=== PATIENT | female | born 1980 | race Caucasian/White ===

== ENCOUNTER → 2019-05-19 14:03 | Outpatient (CLI) | payer OTHER | END | disposition home or self-care (01) | LOC: RAD 14:03 | DX: N20.0 Calculus of kidney (principal) ==

== ENCOUNTER 2020-02-11 14:50 | Emergency (ER) | payer OTHER ==
[~2020-02-11] VITALS: Ht 152.4 cm; Wt 77.1 kg
[2020-02-11] MEDS ORDERED: MULTI VITAMIN1 EACH (15:30)
[2020-02-11] MEDS ORDERED: TOPROL XL50 M1 (15:30)
[2020-02-11] MEDS ORDERED: XANAX XR2 MG (15:31)
== END 2020-02-11 17:28 | disposition home or self-care (01) ==
LOC: ER 14:50
DX: R51 Headache (principal); F41.0 Panic disorder [episodic paroxysmal anxiety]; F41.8 Other specified anxiety disorders

== ENCOUNTER 2021-02-07 14:59 | Outpatient (CLI) | payer OTHER ==
[~2021-02-07 14:59] MED LIST: MULTI VITAMIN1 EACH; TOPROL XL50 M1; XANAX XR2 MG
== END 2021-02-07 15:07 | disposition home or self-care (01) ==
LOC: MAMO-SONO 14:59
PROVIDERS: ATTEND Obstetrics & Gynecology
DX: Z12.31 Encounter for screening mammogram for malignant neoplasm of breast (principal); N64.59 Other signs and symptoms in breast; N60.11 Diffuse cystic mastopathy of right breast; N60.12 Diffuse cystic mastopathy of left breast

== ENCOUNTER → 2021-02-09 15:00 | Outpatient (CLI) | payer OTHER | END | disposition home or self-care (01) | LOC: PPH VACUNA 15:00 | DX: Z23 Encounter for immunization (principal) ==

== ENCOUNTER 2021-09-15 13:42 | Outpatient (CLI) | payer OTHER | END 2021-09-15 13:52 | disposition home or self-care (01) | LOC: RAD 13:42 | PROVIDERS: ATTEND Urology | DX: N20.0 Calculus of kidney (principal) ==

== ENCOUNTER 2021-09-16 15:46 | Emergency (ER) | payer OTHER ==
[~2021-09-16] VITALS: Ht 152.4 cm; Wt 70.3 kg
== END 2021-09-16 19:59 | disposition home or self-care (01) ==
LOC: ER 15:46
DX: N20.0 Calculus of kidney (principal); N39.0 Urinary tract infection, site not specified

== ENCOUNTER 2021-10-03 09:25 | Outpatient (CLI) | payer OTHER | END 2021-10-03 09:33 | disposition home or self-care (01) | LOC: RAD 09:25 | PROVIDERS: ATTEND Urology | DX: N20.0 Calculus of kidney (principal) ==

== ENCOUNTER 2022-12-06 09:20 | Emergency (ER) | payer OTHER ==
[~2022-12-06] VITALS: Ht 152.4 cm; Wt 72.6 kg
[2022-12-06] MEDS ORDERED: MUPIROCIN15 GM TOP (16:11)
== END 2022-12-06 16:44 ==
LOC: ER 09:20
DX: L02.211 Cutaneous abscess of abdominal wall (principal); N39.0 Urinary tract infection, site not specified; N26.1 Atrophy of kidney (terminal); N20.0 Calculus of kidney

== ENCOUNTER 2024-09-05 07:38 | Outpatient (CLI) | payer OTHER ==
[~2024-09-05 07:38] MED LIST changes: +MUPIROCIN15 GM TOP
== END 2024-09-05 07:44 | disposition home or self-care (01) ==
LOC: SONOGRAMA 07:38
DX: Z12.39 Encounter for other screening for malignant neoplasm of breast (principal)

== ENCOUNTER → 2024-09-09 07:44 | Outpatient (CLI) | payer OTHER ==
[2024-09-09 08:20] LABS: HEMATOCRIT 36.7 % (36.0-45.00); MEAN CELL VOLUME 90.8 fL (80.00-100.00); MEAN CORPUSCULAR HEMOGLOBIN 29.6 pg (27.00-32.0); MEAN CORPUSCULAR HGB CONC 32.6 g/dl (32.0-36.0); PLATELET COUNT 338 K/uL (150-450); RED BLOOD COUNT 4.04 M/uL (4.00-6.00); RED CELL DISTRIBUTION WIDTH 15.2 % (11.5-14.5)
[2024-09-09 08:31] LABS: PH,URINE 5.5 (5.0-8.0); URINE APPEARANCE Cloudy; URINE BILIRRUBIN Negative (NEGATIVE); URINE BLOOD Small; URINE COLOR Yellow; URINE GLUCOSE Negative (NEGATIVE); URINE KETONE Negative (NEGATIVE); URINE LEUKOCYTE Moderate; URINE NITRATE Negative; URINE PROTEIN Negative (NEGATIVE); URINE UROBILINOGEN 0.2 E.U./dl
[2024-09-09 08:35] LABS: URINE BACTERIA 2824.5 uL (0.0-1933); URINE WBC 263.5 uL (0.0-23.2)
[2024-09-09 09:13] LABS: URINE RBC 1.5 uL (0.0-20.8)
[2024-09-09 09:16] LABS: ALBUMIN 3.3 gm/dL (3.4-5.0); BILIRUBIN TOTAL 0.56 mg/dL (0.3-1.2); CALCIUM 9.6 mg/dL (8.5-10.1); CHOL HDL RATIO 1.7 (0-5.0); CREATININE SERUM 0.73 mg/dL (0.55-1.02); GFR 86.21; GLOBULINA 3.8 G/DL (2.4-3.5); POTASSIUM 5.4 mEq/L (3.5-5.1); TOTAL PROTEIN 7.1 gm/dL (6.4-8.2); TSH 4.88 uIU/mL (0.358-3.74)
[2024-09-09 10:09] LABS: ob NEGATIVE (NEGATIVE)
== END | disposition home or self-care (01) ==
LOC: LAB 07:44
DX: D64.9 Anemia, unspecified (principal); N39.0 Urinary tract infection, site not specified; R73.01 Impaired fasting glucose; E78.2 Mixed hyperlipidemia; E03.9 Hypothyroidism, unspecified; R19.5 Other fecal abnormalities; R80.9 Proteinuria, unspecified; E55.9 Vitamin D deficiency, unspecified

== ENCOUNTER 2024-09-19 08:37 | Outpatient (CLI) | payer OTHER | END 2024-09-19 08:47 | disposition home or self-care (01) | LOC: RAD 08:37 | DX: N20.0 Calculus of kidney (principal) ==

== ENCOUNTER 2024-11-14 06:08 | Outpatient (CLI) | payer OTHER ==
[2024-11-14 07:15] LABS: HEMOGLOBIN 11.7 g/dL (12.0-15.00); MEAN CELL VOLUME 86.9 fL (80.00-100.00); MEAN CORPUSCULAR HGB CONC 33.4 g/dl (32.0-36.0); PLATELET COUNT 312 K/uL (150-450); RED BLOOD COUNT 4.03 M/uL (4.00-6.00); RED CELL DISTRIBUTION WIDTH 15.7 % (11.5-14.5)
[2024-11-14 07:30] LABS: INR 0.98; PARTIAL THROMBOPLASTIN TIME 28.5 SECONDS (22.0-34.0); PROTHROMBIN TIME 10.7 SECONDS (9.0-11.5)
[2024-11-14 07:44] LABS: URINE APPEARANCE Clear; URINE BILIRRUBIN Negative (NEGATIVE); URINE BLOOD Negative; URINE COLOR Yellow; URINE GLUCOSE Negative (NEGATIVE); URINE KETONE 15 (NEGATIVE); URINE LEUKOCYTE Small; URINE NITRATE Negative; URINE PROTEIN 30 (NEGATIVE); URINE UROBILINOGEN 0.2 E.U./dl
[2024-11-14 07:48] LABS: URINE BACTERIA 72.1 uL (0.0-1933); URINE RBC 13.9 uL (0.0-20.8); URINE WBC 223.6 uL (0.0-23.2)
[2024-11-14 07:59] LABS: CALCIUM 9.7 mg/dL (8.5-10.1); CREATININE SERUM 0.7 mg/dL (0.55-1.02); GFR 90.49; POTASSIUM 4.54 mEq/L (3.5-5.1)
[2024-11-14 08:21] LABS: URINE CAST 0.29 uL (0.0-1.40)
[2024-11-14 08:22] LABS: URINE CRYSTALS FEW /HPF
== END 2024-11-14 06:17 | disposition home or self-care (01) ==
LOC: LAB 06:08
PROVIDERS: ATTEND Urology
DX: N20.0 Calculus of kidney (principal); N20.1 Calculus of ureter

== ENCOUNTER 2024-11-24 08:02 | Outpatient (CLI) | payer OTHER ==
[2024-11-24 09:57] LABS: T4 FREE 0.81 NG/ML (0.76-1.46); TSH 2.08 uIU/mL (0.358-3.74)
== END 2024-11-24 08:03 | disposition home or self-care (01) ==
LOC: LAB 08:02
DX: E03.9 Hypothyroidism, unspecified (principal); R80.9 Proteinuria, unspecified

== ENCOUNTER 2024-12-09 09:58 | Outpatient (CLI) | payer OTHER | END 2024-12-09 10:02 | disposition home or self-care (01) | LOC: RAD 09:58 | DX: N20.0 Calculus of kidney (principal) ==

== ENCOUNTER 2024-12-16 07:11 | Outpatient (CLI) | payer OTHER ==
[2024-12-16 08:56] LABS: PH,URINE 6.5 (5.0-8.0); URINE APPEARANCE Cloudy; URINE BILIRRUBIN Negative (NEGATIVE); URINE BLOOD Large; URINE COLOR Yellow; URINE GLUCOSE Negative (NEGATIVE); URINE KETONE Negative (NEGATIVE); URINE LEUKOCYTE Moderate; URINE NITRATE Negative; URINE UROBILINOGEN 0.2 E.U./dl
[2024-12-16 08:57] LABS: URINE BACTERIA 212.9 uL (0.0-1933); URINE EPITHELIAL CELLS 14.8 uL (0.0-38.8); URINE RBC 2770.8 uL (0.0-20.8); URINE WBC 343.6 uL (0.0-23.2)
[2024-12-16 09:10] LABS: URINE CAST 1.17 uL (0.0-1.40); URINE PROTEIN 100 (NEGATIVE)
== END 2024-12-16 07:14 | disposition home or self-care (01) ==
LOC: LAB 07:11
PROVIDERS: ATTEND Urology
DX: N39.0 Urinary tract infection, site not specified (principal)

== ENCOUNTER 2025-01-06 07:55 | Outpatient (CLI) | payer OTHER | END 2025-01-06 08:00 | disposition home or self-care (01) | LOC: RAD 07:55 | PROVIDERS: ATTEND Urology | DX: N20.1 Calculus of ureter (principal) ==

== ENCOUNTER 2025-03-07 07:45 | Outpatient (CLI) | payer OTHER ==
[2025-03-07 10:07] LABS: BASO % 1.1 % (0.1-1.2); EOS # 0.08 (0.04-0.54); HEMATOCRIT 34.7 % (34.1-44.9); HEMOGLOBIN 11.7 g/dL (11.2-15.7); LYMPH # 1.29 (1.18-3.74); MEAN CORPUSCULAR HEMOGLOBIN 28.7 pg (25.6-32.2); MONO # 0.29 (0.24-0.82); NEUT # 0.93 (1.56-6.13); NEUT % 35.5 % (34.0-71.1); PLATELET COUNT 321 K/uL (163-369); RED BLOOD COUNT 4.08 M/uL (3.93-5.22); RED CELL DISTRIBUTION WIDTH 15.8 % (11.6-14.4)
[2025-03-07 10:38] LABS: ALBUMIN 3.7 gm/dL (3.4-5.0); BILIRUBIN TOTAL 0.45 mg/dL (0.3-1.2); CALCIUM 8.9 mg/dL (8.5-10.1); CREATININE SERUM 0.62 mg/dL (0.55-1.02); GFR 104.09; GLOBULINA 3.6 G/DL (2.4-3.5); POTASSIUM 4.42 mEq/L (3.5-5.1); TOTAL PROTEIN 7.3 gm/dL (6.4-8.2)
== END 2025-03-07 07:51 | disposition home or self-care (01) ==
LOC: LAB 07:45
DX: I10 Essential (primary) hypertension (principal); E78.5 Hyperlipidemia, unspecified; R73.02 Impaired glucose tolerance (oral); D51.8 Other vitamin B12 deficiency anemias

== ENCOUNTER → 2025-03-10 | Outpatient (CLI) | payer OTHER | END | disposition home or self-care (01) | LOC: SONOGRAMA 09:00 | PROVIDERS: ATTEND Urology | DX: R10.13 Epigastric pain (principal); N20.0 Calculus of kidney ==

== ENCOUNTER 2025-03-13 08:08 | Outpatient (CLI) | payer OTHER | END 2025-03-13 08:40 | disposition home or self-care (01) | LOC: SONOGRAMA 08:08 | PROVIDERS: ATTEND Urology | DX: N20.0 Calculus of kidney (principal) ==

== ENCOUNTER 2025-06-30 07:08 | Outpatient (CLI) | payer OTHER | END 2025-06-30 07:16 | disposition home or self-care (01) | LOC: RAD 07:08 | DX: R05.1 Acute cough (principal) ==

== ENCOUNTER 2025-07-06 06:00 | Day surgery (SDC) | payer OTHER ==
[2025-07-01 09:03] VITALS: BP 129/78
[2025-07-01 10:01] LABS: INR 0.95
[~2025-07-06] VITALS: Ht 149.9 cm; Wt 59.9 kg
== END 2025-07-06 11:45 | disposition home or self-care (01) ==
LOC: CIR.AMB 06:00
PROVIDERS: ATTEND Internal Medicine
DX: D37.1 Neoplasm of uncertain behavior of stomach (principal); K20.80 Other esophagitis without bleeding; K29.50 Unspecified chronic gastritis without bleeding

== ENCOUNTER 2025-08-18 14:22 | Outpatient (CLI) | payer OTHER | END 2025-08-18 14:25 | disposition home or self-care (01) | LOC: MAMO-SONO 14:22 | PROVIDERS: ATTEND Obstetrics & Gynecology | DX: N63.10 Unspecified lump in the right breast, unspecified quadrant (principal); N63.20 Unspecified lump in the left breast, unspecified quadrant ==